=== PATIENT | female | born 1980 | race American Indian/Alaskan Native ===

== ENCOUNTER 2016-09-22 10:28 | Day surgery (SDC) | payer SELFPAY | END 2016-09-22 10:29 | disposition home or self-care (01) | LOC: OPU 10:28 → ED 10:28 → OPU 10:29 → EDSTATUS 10:46 | DX: S60.455A Superficial foreign body of left ring finger, initial encounter (principal); X58.XXXA Exposure to other specified factors, initial encounter ==